=== PATIENT | female | born 2005 | race Two or more races ===

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

== ENCOUNTER 2024-01-10 10:47 | Outpatient (CLI) | payer BC, SELFPAY ==
[2024-01-10 11:07] LABS: Basophils Absolute Auto 0.1 K/mm3 (0.0-0.1); Basophils Percent Auto 0.7 % (0.2-1.2); Eosinophils Percent Auto 0.6 % (0-4.4); Hematocrit 40.2 % (37.0-47.0); Immature Granulocyte Absolute 0.02 K/mm3 (0.00-0.031); Immature Granulocyte Percent A 0.3 % (0-0.5); Lymphocytes Percent Auto 21.6 % (18.3-44.2); Mean Corpuscular HGB Conc 32.3 g/dl (32-36); Mean Corpuscular Volume 89.5 fl (80-100); Mean Platelet Volume 9.7 fl (7.4-10.4); Monocytes Absolute Auto 0.4 K/mm3 (0.1-0.6); Monocytes Percent Auto 5.9 % (2.6-8.5); Neutrophils Absolute Auto 4.9 K/mm3 (1.3-6.7); Neutrophils Percent Auto 70.9 % (45.5-73.1); Platelet Count Result 363 k/mm3 (150-375); Red Blood Count 4.49 M/mm3 (4.2-5.4); Red Cell Distribution Width 12.6 % (11.5-14.5)
== END 2024-01-10 10:48 | disposition home or self-care (01) ==
LOC: ANHLAB 10:48
PROVIDERS: PCP Family Medicine; Visit Provider Family Medicine
DX: D72.829 Elevated white blood cell count, unspecified (principal)
CPT/HCPCS: 36415; 85025

== ENCOUNTER 2024-01-13 12:44 | Outpatient (CLI) | payer BC, SELFPAY ==
--- NOTE | ~2024-01-13 | US_ITS ---
EXAMINATION TYPE: US breast LT complete COMPARISON: NONE REASON FOR STUDY: N63.20 - Unspecified lump in the left breast, unspecified... TECHNIQUE: Targeted sonographic evaluation of the left breast was performed. INTERPRETATION: At the 8:00 position left breast, 3 cm from the nipple, there is a 1.3 x 0.8 x 1.6 in near parallel c ircumscribed hypoechoic solid mass. There is posterior through transmission. Mass is mildly heterogen eous. IMPRESSION: 1.3 x 0.8 x 1.6 cm left breast mass, as detailed above, probably benign. 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 Six-month follow-up ultrasound recommended to reassess. Biopsy could be pursued for mor e definitive diagnosis, as indicated. BI-RADS CATEGORY: BI-RADS 3: Probably benign Reviewed, dictated and finalized at location M. CTOR OF BILLING IMPRESSION: 1.3 x 0.8 x 1.6 cm left breast mass, as detailed above, probably benign. This m ost likely represents fibroadenoma. Six-month follow-up ultrasound recommended to reassess. Biopsy could be pursued for more definitive diagnosis, as indicate d. BI-RADS CATEGORY: BI-RADS 3: Probably benign
== END 2024-01-13 12:45 | disposition home or self-care (01) ==
LOC: MICIMG 12:44
PROVIDERS: PCP Family Medicine; Visit Provider Family Medicine
DX: N63.24 Unspecified lump in the left breast, lower inner quadrant (principal)
CPT/HCPCS: 76641

== ENCOUNTER 2024-01-25 14:33 | Outpatient (CLI) | payer BC, SELFPAY ==
[2024-01-28 13:33] LABS: NIL 0.01 IU/mL; Quantiferon TB Plus, 1T NEGATIVE (NEGATIVE); TB1-NIL 0.01 IU/mL; TB2-NIL 0.01 IU/mL
== END 2024-01-25 14:34 | disposition home or self-care (01) ==
PROVIDERS: PCP Family Medicine; Visit Provider Family Medicine
DX: Z11.1 Encounter for screening for respiratory tuberculosis (principal)
CPT/HCPCS: 36415; 86480

== ENCOUNTER 2024-02-07 07:38 | Outpatient (CLI) | payer BC, SELFPAY ==
--- NOTE | ~2024-02-07 | MMUS_ITS ---
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 Ultrasound-guided core biopsy is requested to evaluate for malignancy. BREAST PARENCHYMAL COMPOSITION: Dense: The breasts are extremely dense, which lowers the sensitivity of mammography. TECHNIQUE AND FINDINGS: The risks and potential benefits of the procedure were discussed with the patient, and written inform ed consent was obtained. After sterile preparation of the left breast, 1% lidocaine was utilized for local anesthesia. 1% lidocaine with epinephrine was used for deep anesthesia. A 10G vacuum-assisted biopsy gun needle was advanced through to the outer edge of the region of inter est from a medial approach utilizing sonographic guidance. A total of 4 tissue core samples were obt ained through the lesion. An Inrad tissue marker clip was then placed at the biopsy site. Hemostasis was achieved. The patient tolerated procedure well and there was no evidence of immediate complication. The patien t was given verbal instructions partly is from the department. Left breast mammograms to document ti ssue marker clip placement. The tissue samples were submitted to surgical pathology for histologic an alysis. IMPRESSION: 1. Successful ultrasound-guided vacuum-assisted biopsy of left breast mass with post procedure mammo gram for marker placement. Please refer to pathology report for histologic analysis. Reviewed, dictated and finalized at location B. ER MARBLE FINISHER IMPRESSION: 1. Successful ultrasound-guided vacuum-assisted biopsy of left breast mass wit h post procedure mammogram for marker placement. Please refer to pathology repo rt for histologic analysis.
== END 2024-02-07 07:39 | disposition home or self-care (01) ==
PROVIDERS: PCP Family Medicine; Visit Provider Family Medicine
DX: N63.20 Unspecified lump in the left breast, unspecified quadrant (principal)
CPT/HCPCS: 19083; 77065; 88305; A4648

== ENCOUNTER 2024-09-25 21:59 | Emergency (ER) | payer BC, SELFPAY ==
--- OUTSIDE RECORDS SUMMARY | 2024-09-25 22:01 | XMS_ITS | Encounter Summary ---
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
--- OUTSIDE RECORDS SUMMARY | 2024-09-25 22:01 | XMS_ITS | Continuity of Care Document ---
Author Organization [facility] Address [address] [place] [address] Phone Care Team Providers Care Obedience Trainer Name Role Phone Bailey Torres Unavailable Unavailable Procedures Procedure Date Eye Exam, New Patient Refraction Advance Directives Directive Yes / No Effective Date File Name No Information Encounters Encounter Description Practice Location Reason(s) For Visit Diagnoses Date Provider Providers Copied on Encounter [facility], [address], [place], [place], [id number], [place] tel:[phone] [facility] No Information [phone] Melissa Avalos. [address] , [address], [place], [address], [place]. tel:[phone] Family History Family Member Type Diagnosis Age At Onset No Information Payers Payer name Insurance type Covered green party ID Authoriza tion(s) No Information Social [...]
--- OUTSIDE RECORDS SUMMARY | 2024-09-25 22:01 | XMS_ITS | Clinical Summary ---
Author Organization [facility] Address [address] [place] [address] Care Team Providers Care Manager Alliance Name Role Phone Zachary Purcell MD Primary Care Provider [phone] Source Comments [facility]non-owned Affiliates and Associated Physician Practices is amultiple site organization consisting of ambulatory clinics and hospital sitesin [place], [place], [place] and [place]. This disclosure is being madepursuant to the Care Everywhere program and may not contain all information available regarding this patient. Last updated 17.[facility] Allergies No known active allergies Medications * Be aware that medications may not be up to date on this document. Alwaysverify current medications with the patient. hydroxychloroqui ne (PLAQUENIL) 200 MG tablet Take 100 mg by mouth once daily. Active loratadine (CLARITIN) 5 MG/5ML syrup Take 5 mg by mouth once daily. Active acetaminophen (TYLENOL) 80 MG/0.8ML solution Take 150 mg by mouth every 4 hours as needed. Active lansoprazole, disintegrating, (PREVACID SOLUTAB) 15 MG tablet Take 1 Tab by mouth daily before breakfast. 30 Tab 2 08/13/2011 Active Social History Tobacco Use Types Packs/Day Years Used Date Smoking Tobacco: Never Assessed Comments Unknown Sex and Gender Information Value Date Recorded Sex Assigned at Not on file Legal Sex Female 5:32 AM SENIOR APPLICATIONS ARCHITECT Gender Identity Not on file Sexual Orientation Not on file Last Filed Vital Signs Vital Sign Reading Time Taken Comments Blood Pressure 100/70 09/06/2012 3:21 PM CDT Pulse 84 09/06/2012 3:21 PM CDT Temperature 36.8 C (98.3 F) 09/06/2012 3:21 PM CDT Respiratory Rate 24 01/18/2011 6:18 PM SENIOR APPLICATIONS ARCHITECT Oxygen Saturation - - Inhaled Oxygen Concentration - - Weight 25.4 kg (56 lb) 09/06/2012 3:21 PM CDT Height 125.7 cm (4' 1.5) 09/06/2012 3:21 PM CDT Body Mass Index 16.07 09/06/2012 3:21 PM CDT Body Mass Index Percentile 56.94% 09/06/2012 3:2 1 PM CDT Growth Chart: [facility] (Girls, 2- 20 Years) Plan of Treatment Health Maintenance Due Date Last Done Comments HIV SCREENING 11/05/2019 HPV VACCINE (1 - 3-dose series) 11/05/2019 CHLAMYDIA/GONORRHEA SCREENING 2020 MENINGOCOCCAL (Group B) VACC INE SHARED DECISION-MAKING (1 of 2 - Standard) 2020 HEPATITIS C SCREENING 10/31/2022 COVID-19 VACCINE (1 - 2023-2 5 season) 2023 DTAP/TDAP/TD VACCINES (1 - Tdap) 11/05/2023 HEPATITIS B VACCINE (1 of 3 - 19+ 3-dose series) 11/05/2023 DEPRESSION SCREENING 03/01/2024 INFLUENZA VACCINE (#1) 2024 ZOSTER VACCINE (1 of 2) 2054 HIB VACCINE Aged Out No longer eligi ble based on patient's age to complete this topic MENINGOCOCCAL GROUPS A/C/Y/W VACCINE Aged Out No longer eligible b ased on patient's age to complete this topic PNEUMOCOCCAL VACCINE Aged Out No long er eligible based on patient's age to complete this topic Insurance [facility] SELF PAY NO INSURANCE Member Subscriber Plan / Payer (Ef fective for All Dates) Name:[place]onna [place] Member ID:Not on file Relation to Subscriber:Not on file Name:SHONNA [place] Subscriber ID:Not on file (Home) Address: [address] [place] [address] Payer ID:Not on file Group ID:Not on file Type:Self Pay Address: [place], [place] ANTHEM ANTHEM Care Teams Manager Alliance Relationship Specialty Start Date End Date Zachary Purcell MD [address] [place] [address] PCP - General Pediatrics 09/25/22
[2024-09-25 22:02] VITALS: BP 125/82; PULSE 62; RESP 16; TEMP 36.8; O2SAT 100
--- OUTSIDE RECORDS SUMMARY | 2024-09-25 22:02 | XMS_ITS | Data Portability ---
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 Plan of Treatment Reminders Order Date Submit Date Provider Last Modified By Organization Details Last Modified Time Details Appointments IUD INSERTION 2024 02:00P M JUDY WONG NP Not available Not available Not available MED CHECK 2024 11:30A M JUDY WONG NP Not available Not available Not available Lab test, urine 2024 025 [email or web address], [place], [address], 09/25/2024 15:25:24 Referral None recorded. Procedures None recorded. Surgeries None recorded. Imaging None recorded. Medication Orders Kyleena 17.5 mcg/24 hr (up to 5 years) 19.5 mg intrauter ine device [email or web address] [id number], [address] [place], [place], [phone], 09/25/2024 15:31:06 Twirla 120 mcg-30 mcg/24 hr transderm al patch [email or web address] [id number], [address] [place], [place], [phone], 06/13/2024 12:19:19 Patient TargetsNo targets recorded. Patient InstructionsNo instructions recorded. Reason for Referral None Reported. Results Created Date Observation Date Name Description Value Unit Range Abnormal Flag Note LastModifiedBy Organization Detail LastModifiedTime 09/26/1909/25/2024 pregn hayder test, urine HCG negati ve Not Available [place] [address], [place], [address], 09/25/2024 15:10:07 Result Notes None recorded. Procedures Surgical History Date Name Laterality Status Provider Name and Address Organization Details Recorded Time IUD Insertion completed JUDY WONG NP [address], [place], [address], [facility] 09/25/2024 15:23:01 Imaging Results None recorded. Procedure Notes None recorded. Medical Equipment None Reported. Allergies No known drug allergies Medications Name Sig Start Date Stop Date Status Note LastModified by Organization Details LastModified Time cyclobenzap rine 10 mg tablet TAKE 1 TABLET BY MOUTH THREE TIMES DAILY NEEDED FOR MUSCLE SPASM 05/16 completed Not Available Not Available Not Available amoxicillin 500 mg capsule 09/22 completed Not Available Not Available Not Available Xanax 0.5 mg tablet Take 1 tablet 1 hour prior to procedure 2024 active Not Available Not Available Not Avai lable ibuprofen 800 mg tablet Take 1 tablet 1 hour prior to procedure 2024 active Not Available Not Available Not Avai lable hydrocodone 5 mg-acetamin ophen 325 mg tablet TAKE 1 TO 2 TABLETS BY MOUTH EVERY 4 TO 6 HOURS NEEDED FOR PAIN . MAX 8 TABLETS DAILY 03/08 completed Not Available Not Available Not Available prednisone 20 mg tablet TAKE 2 TABLETS BY MOUTH DAILY FOR 5 DAYS 05/16 completed Not Available Not Available Not Available fluoxetine 10 mg tablet TAKE 1 TABLET BY MOUTH DAILY active Not Available Not Available No t Available ondansetron 8 mg disintegrat ing tablet Take 1 tablet 1 hour prior to procedure 2024 active Not Available Not Available Not Avai lable oxycodone-a cetaminophe n 5 mg-325 mg tablet Take 1 tablet 1 hour prior to procedure 2024 active Not Available Not Available Not Avai lable amoxicillin 875 mg tablet TAKE 1 TABLET BY MOUTH EVERY 12 HOURS 09/22 completed Not Available Not Available Not Available sertraline 25 mg tablet TAKE 1 TABLET BY MOUTH DAILY 08/09 completed Not Available Not Available Not Available ibuprofen 600 mg tablet 03/08 completed Not Available Not Available Not Available hydroxyzine HCl 10 mg tablet TAKE 1 TABLET BY MOUTH THREE TIMES DAILY NEEDED FOR ANXIETY active Not Available Not Available No t Available ondansetron 4 mg disintegrat ing tablet DISSOLVE 1 TABLET ON THE TONGUE EVERY 8 HOURS NEEDED FOR NAUSEA OR VOMITING 03/08 completed Not Available Not Available Not Available oxycodone 5 mg tablet 03/08 completed Not Available Not Available Not Available chlorhexidi ne gluconate 0.12 % mouthwash SWISH AND SPIT 15 ML BY MOUTH TWICE DAILY AFTER TOOTHBRUS ANGELES. 09/22 completed Not Available Not Available Not Available Lo Loestrin Fe 1 mg-10 mcg (24)/10 mcg (2) tablet TAKE 1 TABLET BY MOUTH EVERY DAY 06/13 completed Not Available Not Available Not Available Blisovi Fe 1/20 (28) 1 mg-20 mcg (21)/75 mg (7) tablet TAKE 1 TABLET BY MOUTH EVERY DAY 03/08 completed Not Available Not Available Not Available Kyleena 17.5 mcg/24 hr (up to 5 years) 19.5 mg intrauterin e device Take 1 device by intrauter ine route. 2024 active Not Available Not Available Not Tiara lable Twirla 120 mcg-30 mcg/24 hr transdermal patch Apply 1 patch every week by transderm al route for 21 days. 06/13 completed Not Available Not Available Not Available Vitals Date Recorded Body height Body mass index (BMI) [Percentile] Per age and sex Body mass index (BMI) Body weight Systolic And Diastolic Provider Name and Address Organization Details Last Updated DateTime 03/08/2024 170.18 cm 46 % 21.3 kg/m2 67718.8 4 g 108/74 mm[Hg] Areli Zimmer [facility] 09:50:25 Date Recorded Body height Body mass index (BMI) [Percentile] Per age and sex Body mass index (BMI) Body weight Systolic And Diastolic Provider Name and Address Organization Details Last Updated DateTime 06/13/2024 170.18 cm 42 % 21 kg/m2 40102.6 6 g 107/68 mm[Hg] [facility] 5 12:18:24 Date Recorded Body height Body mass index (BMI) Body mass index (BMI) [Percentile] Per age and sex Body weight Systolic And Diastolic Provider Name and Address Organization Details Last Updated DateTime 08/09/2024 170.18 cm 20.8 kg/m2 39 % 00008.0 7 g 109/68 mm[Hg] [facility] 5 11:36:15 Date Recorded Body height Body mass index (BMI) Body mass index (BMI) [Percentile] Per age and sex Body weight Systolic And Diastolic Provider Name and Address Organization Details Last Updated DateTime 09/14/2024 170.18 cm 20.9 kg/m2 40 % 64521.2 2 g 116/70 mm[Hg] [facility] 5 14:07:52 Date Recorded Body height Body mass index (BMI) Body mass index (BMI) [Percentile] Per age and sex Body weight Systolic And Diastolic Provider Name and Address Organization Details Last Updated DateTime 09/25/2024 170.18 cm 20.9 kg/m2 40 % 11954.5 g 128/73 mm[Hg] [facility] 5 15:01:42 Social History Question Answer Notes LastModified by Organizat ion Details LastModified Time Tobacco Smoking Status Never Smoker [facility] 02/25/2022 17:00:32 Are You Blind Or Do You Have Difficulty Seeing? No Information n ot available 02/25/2022 What Is Your Level Of Caffeine Consumption? Occasional [email or web address] Information not available 05/17/2023 How Much Tobacco Do You Chew? None [email or web address] Information not available 05/17/2023 In The 14 Days Before Symptom Onset, Have You Had Close Contact With A Laboratory-confirm ed COVID-19 While That Case Was Ill? No [email or web address] Information n ot available 05/17/2023 In The 14 Days Before Symptom Onset, Have You Had Close Contact With A Person Who Is Under Investigation For COVID-19 While That Person Was Ill? No Information not available 05/17/2023 Have You Been To An Area Known To Be High Risk For COVID-19? No [email or web address] Information not available 05/17/2023 Are You Deaf Or Do You Have Serious Difficulty Hearing? No Information not available 02/25/2022 What Type Of Diet Are You Following? REGULAR Information n ot available 02/25/2022 What Is The Highest Grade Or Level Of School You Have Completed Or The Highest Degree You Have Received? [id number] [email or web address] Information not available 05/17/2023 How Many Days Of Moderate To Strenuous Exercise, Like A Brisk Walk, Did You Do In The Last 7 Days? 5 Information not available 02/25/2022 Are There Any Guns Present In Your Home? No [email or web address] Information not available 05/17/2023 Do You Use Your Seat Belt Or Car Seat Routinely? Yes [email or web address] Information not available 05/17/2023 Do You Have Smoke And Carbon Monoxide Detectors In Your Home? Yes [email or web address] Information not available 05/17/2023 How Much Tobacco Do You Smoke? No Information not available 05/17/2023 Do You Use Sunscreen Routinely? No Information not available 05/17/2023 Have You Used IV Drugs? No Information not available 05/17/2023 Do You Have Difficulty Walking Or Climbing Stairs? No Information not available 02/25/2022 Sex: Unknown Functional Status Question Answer Note LastModified by Organizat ion Details LastModified Time Do you use any illicit or recreational drugs? No [email or web address] Information not available 05/17/2023 What is your level of alcohol consumption? None Information not available 02/25/2022 Are you able to walk? [email or web address] Information not available 02/25/2022 Are you able to care for yourself independently? Yes Information not available 02/25/2022 Do you have difficulty dressing, bathing, grooming, or toileting? No Information not available 02/25/2022 What is your exercise level? Heavy Information not available 02/25/2022 Mental Status Question Answer Note LastModified by Organization D etails LastModified Time Do you feel stressed (tense, restless, nervous, or anxious, or unable to sleep at night)? [id number] [email or web address] Information not available 05/17/2023 Family History Relationship Description Onset Age of this Age Resolved Age Notes LastModified by Organization Details LastModified Time Maternal Grandmother Malignant tumor of breast Not available 2021 16:57:33 Maternal Grandmother Uterine prolapse [email or web address] Not available 2024 13:56:52 Maternal Grandmother Disorder of thyroid gland Not available 2021 16:59:51 Maternal Grandfather Diabetes mellitus Not available 2021 16:57:40 Maternal Grandfather Hypertensive disorder Not available 2021 16:57:49 Maternal Aunt Malignant neoplasm of lung Not available 2021 16:57:58 Mother Disorder of thyroid gland Not available 2021 16:59:51 Mother Endometriosi s (clinical) [email or web address] Not available 14:12:45 Maternal Uncle Disorder of thyroid gland Not available 2021 16:59:51 Medical History Condition Response Allergies (Food, seasonal, environmental ) N Other N Breast Cancer N Drug/Latex Allergies/Reactions N Blood Transfusion N Lung Disease N Dermatologic Disorders N Defects or Inherited Disease N Breast Problem N Gestational Diabetes N Hematologic disorders N Anesthesia Complications N History of STI N Deep Vein Thrombosis N Polycystic ovary syndrome N Anxiety Disorder N Autoimmune disease N Arthritis N Polyps N Infertility N History of abnormal pap N Acid Reflux (GERD) N Cancer N Varicosities N Stroke N Neurologic/Epilepsy N Endometriosis N High Cholesterol N Fibromyalgia N Headaches N Kidney Disease N Heart Problems N Kidney or Bladder Problems N Thyroid Problems N GI Problems N Eating Disorder N Anemia N Art (IVF or FET) N Psychiatric Illness N Ovarian Cancer N Diabetes N Pulmonary (TB, Asthma) N Hepatitis/Liver Disease N No Past Medical History N Eczema N Urinary Tract Infection N Abuse/Domestic Violence N Asthma N Trauma/Violence N Depression/ depression N Heart Disease N Pre-Eclampsia N Hypertension N Osteoporosis N Thrombophilias N Gynecological History Statement/Question Response Flow Heavy Date of Last Mammogram Date of LMP 08/28/2024 Was last menstrual period normal Y STIs/STDs N HPV Vaccine Y Duration of Flow (days) 6 Current Control Method IUD Are cycles usually normal N Frequency of Cycle (Q days) 29 Sexually Active? Y Menses Monthly Y Date of DEXA bone scan Age of first menstrual cycle 11 Date of Last Pap Smear Sexual Problems? N LMP Definite Obstetrics History GPAL:G 0 P 0 0 0 0 Type Value Living 0 Total 0 Past Encounters Encounter ID Performer Location Encounter Start Date Encounter Closed Date Diagnosis/Indication Diagnosis SNOMED-CT Code Diagnosis ICD10 Code Diagnosis Note [id number] Kaylyn Vaughan [facility] [address] [address] 02/25/2022 16:37:13 02/26/2022 16:03:52 Pain in pelvis 63058934 R10.2 Will further evaluate this issue.Rele ase signed to get additional imaging report of CT.TAUS ONLYAware to come with full bladder.Wi ll reach out with results. Patient is to contact office or go to nearest ED/Urgent care if fever >/= 100.1, pain, excessive bleeding, unusual drainage or swelling in area of concern; or experienci ng worsening sx's or new onset of concerning sx's. Understand ing verbalized . All questions answered to patient satisfacti on. Time spent in visit is a total of 30 mins with at least 50% of visit consisting of counseling and review of plan of care. [id number] Nima Simeon MD [place] [address] [address] 03/03/2022 16:29:03 03/03/2022 17:11:40 Pain in pelvis 21341412 R10.2 [id number] Nima Simeon MD [place] [address] [address] 05/17/2023 14:19:09 05/17/2023 15:38:54 Pain in pelvis 54428984 R10.2 17-year-ol d female who presents for episode of dysmenorrh ea. She is some cramping intense pain at time of her menses. That pain persists now. She continues to bleed. She has never had sex. This is her 1st episode of pain. We talked about menstrual cycle, pain, hormonal contracept ion. We spent 20 minutes face-to-fa ce. We agreed to get an ultrasound . We will observe pain. A single episode may not be a persistent problem. [id number] Nima Simeon MD [place] [address],[place] [address] 05/27/2023 14:01:04 05/27/2023 15:16:57 Pain in pelvis 17645968 R10.2 17-year-ol d female who presents for episode of dysmenorrh ea. She is some cramping intense pain at time of her menses. That pain persists now. She continues to bleed. She has never had sex. This is her 1st episode of pain. We talked about menstrual cycle, pain, hormonal contracept ion. We spent 20 minutes face-to-fa ce. We agreed to get an ultrasound . We will observe pain. A single episode may not be a persistent problem. [id number] Nima Simeon MD [place] [address],[place] [address] 05/31/2023 10:12:57 05/31/2023 13:11:07 Dysmenorrhea 070734243 N94.6 17-year-ol d female who presents by phone to discuss ultrasound results. Her ultrasound is normal. She had a isolated painful menses. We are going to observe and see if she is more painful menses. She was instructed to return to discuss treatment strategies if they persisted. [id number] Nima Simeon MD [place] [address],[place] [address] 06/22/2023 12:06:07 06/22/2023 13:13:32 Dysmenorrhea 599651974 N94.6 17-year-ol d female with dysmenorrh ea. We were observing some painful periods. They have persisted. We agreed to a trial of orall contracept mckayla pills. We talked about oral contracept mckayla pills. I gave her background and monae vitale along with zechariah nolasco about the pill. She was instructed on how to start. Spent 20 minutes face-to-fa ce . More than 50% was counseling . Nima Simeon MD [place] [address],[place] [address] 09/23/2023 12:22:12 09/25/2023 10:02:28 Dysmenorrhea 832736881 N94.6 17-year-ol d female with dysmenorrh ea. She presents for follow-up after prescribin g low-dose contracept mckayla pills. She noticed improvemen t of her periods. This lower flow and less pain. She is having trouble with side effects of the combined oral contracept mckayla pills. We talked about options and we discussed a lower dose pill. We agreed to a lower dose pills. She was given zechariah cruz. We talked about the risks, benefits, and alternativ es to this treatment. The medication s were prescribed . Spent over 30 minutes on her care in total [id number] Nima Simeon MD [place] [address],[place] [address] 03/08/2024 09:43:48 03/08/2024 10:17:42 Contraception care management 335767784 Z30.9 Discussed all control options in great detail. Pt would like to start Twirla patch. She is aware of the risks and benefits. She does not have any medical condition that is contraindi cated with the use of estrogen containing control. Pt may start patch the first day of her next period and then replace weekly x 2 (total of 3 patches over 3 weeks) and week 4 no patch. She is aware it is not effective for control the first month. She is also aware that she will need to check placement daily to ensure it has not come off. Patient instructed to apply patch when her skin is clean and dry. Encouraged use of condoms as the Twirla patch does not protect against STD's. Consent was read and signed. Pt verbalized understand ing. Pt to RTO in 3 months for a med check. [id number] Nima Simeon MD [place] [address],[facility] [place] [address] 06/13/2024 12:09:51 06/13/2024 13:40:46 Contraception care management [id number] Z30.9 Effectiven ess, correct use, advantages /disadvant ages, common side effects, serious complicati ons, contra-ind ications/p recautions and return to fertility were reviewed for the following: Combined oral contracept mckayla (pills/pat ch/ring), Progestero ne-only pills, Depo Provera injection, Nexplanon implant, Kyleena IUD, Mirena IUD. Patient interested in hormonal Kyleena IUD or Nexplanon. Patient to call with decision. [id number] Nima Simeon MD [place] [address],[facility] [place] [address] 08/09/2024 11:28:22 08/09/2024 12:06:10 Menorrhagia 254685868 N92.0 Today we discussed multiple options for menorrhagi a including: IUD's, Patch, Ring, Pills, Nexplanon, Lysteda. We discussed if any are contraindi cated with her current health Hx.Discuss ed updating pelvic ultrasound due to persistent menorrhagi a and painful periods - patient declined at this time.Patie nt interested in hormonal Kyleena IUD.Discus sed the risks, benefits, and alternativ es to Kyleena IUD. Discussed insertion and removal process. Discussed bleeding profile. Questions answered. Will schedule insertion with menses. [id number] Nima Simeon MD [place] [address] [address] 09/14/2024 13:56:10 09/14/2024 17:43:18 Secondary dysmenorrhea 51940914 N94.5 Reviewed endometrio sis in general, symptoms attributab le to it, and potential effects on future fertility. Discussed chronic nature of disease, and frequent need for suppressio n until menopause. Reviewed medical therapies (pros/cons , risks/bene fits of each) and surgical approaches to treatment, including conservati ve procedures and definitive surgery. Discussed that endometrio sis cannot be diagnosed with pelvic ultrasound and requires diagnostic laparoscop y to definitely diagnose. Discussed updating pelvic ultrasound to r/o uterine/ov silvano abnormalit ies - patient declined at this time. Patient desires to get Kyleena IUD to help manage period symptoms.D iscussed the risks, benefits, and possible adverse effects of Kyleena IUD. Discussed insertion and removal process. Discussed bleeding profile. Questions answered. Will schedule insertion with menses. [id number] Nima Simeon MD [place] [address] [address] 09/25/2024 14:52:46 09/25/2024 15:32:17 Insertion of intrauterine contraceptive device 07140216 Z30.430 She has been counseled on all of the r/b/a of placement of an intrauteri ne device that include but are not limited to uterine perforatio n, injury to cervix, vagina, bladder, and bowel.Risk s of bleeding due to injury or increased irregular bleeding due to progestin effect of the device. Risks of infection would be increased within the first 21 days of placement with concomitan t cervicitis . She understand s that the device will need to be removed in this instance due to increased risk of Pelvic inflammato ry disease. Patient is aware she is at higher risk for STD and if contracted she could lose her fertility. Pt is aware that if occurs that she should contact office immediatel y to rule out ectopic which could be life threatenin g. IUD will also need to be removed and this could cause miscarriag e. Patient also informed that in the event her strings are absent or embedded at the time of removal she may need to have the IUD surgically removed. She was informed of the above and properly consented. Kyleena IUD placed w/o complicati on. Patient should return to office in 4-6 weeks to check for string placement. Patient to expect irregular bleeding but should be seen in the ED if bleeding increases to soaking a pad an hour for at least 2 hours. She verbalized understand ing. Health Concerns Section Related Observation LastModified by Organization Detai ls LastModified Time None Recorded Concern Status LastModified by Organization Details LastModified Time None Recorded Advance Directives Directive None Recorded Payers Insurance Date Sequence Insurance Name Policy Number Policy Rogers Covered Member ID Rogers Member ID Guarantor Name 09/22/2024 1 [employer] [id number] Erlin Aponte [id number] J[address] Aponte OBMercy Episode No OBEpisode recorded.
--- OUTSIDE RECORDS SUMMARY | 2024-09-25 22:02 | XMS_ITS | Continuity of Care Document ---
Author Organization 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 Plan of Treatment Reminders Order Date Submit Date Provider Last Modified By Organization Details Last Modified Time Details Appointments IUD INSERTION 2024 02:00P M JUDY WONG CHIP FRIER Not available Not available Not available MED CHECK 2024 11:30A M JDUY WONG CHIP FRIER Not available Not available Not available Lab test, urine 2024 025 [email or web address] [place], [address], [place], [address], 09/25/2024 15:25:24 Referral None recorded. Procedures None recorded. Surgeries None recorded. Imaging None recorded. Medication Orders Kyleena 17.5 mcg/24 hr (up to 5 years) 19.5 mg intrauter ine device 2024 025 [email or web address] [id number], [address], [place], [place], [id number], 09/25/2024 15:31:06 Patient TargetsNo targets recorded. Patient InstructionsNo instructions recorded. Reason for Referral None Reported. Results Created Date Observation Date Name Description Value Unit Range Abnormal Flag Note LastModifiedBy Organization Detail LastModifiedTime 09/26/1909/25/2024 pregn hayedr test, urine HCG negati ve Not Available [place] [address], [place], [address], 09/25/2024 15:10:07 Result Notes None recorded. Procedures Surgical History Date Name Laterality Status Provider Name and Address Organization Details Recorded Time IUD Insertion completed JUDY WONG NP [address], [place], [address], [facility] 09/25/2024 15:23:01 Imaging Results None recorded. [...] Available Not Available ibuprofen 600 mg tablet 01/08 /2025 completed Not Available Not Available Not Available [...] Available Not Available Not Available Blisovi Fe /20 (28) 1 mg-20 mcg (21)/75 mg (7) tablet TAKE 1 TABLET BY MOUTH EVERY DAY 03/08 completed Not Available Not Available Not Available Kyleena 17.5 mcg/24 hr (up to 5 years) 19.5 mg intrauterin e device Take 1 device by intrauter ine route. 2024 active Not Available Not Available Not Avai lable Twirla 120 mcg-30 mcg/24 hr transdermal [...] 09/25/2024 170.18 cm 20.9 kg/m2 40 % 09272.5 g 128/73 mm[Hg] Areli Zimmer [facility] 15:01:42 Social History Question Answer Notes LastModified by Organizat ion Details LastModified Time Tobacco Smoking Status Never Smoker Jennifer branham [facility] 02/25/2022 17:00:32 Are You Blind Or Do You Have Difficulty Seeing? No Information n ot available 02/25/2022 What Is Your Level Of Caffeine Consumption? Occasional [email or web address] Information not available 05/17/2023 How Much Tobacco Do You Chew? None [email or web address] Information not available 05/17/2023 In The 14 Days Before Symptom Onset, Have You Had Close Contact With A Laboratory-confirm ed COVID-19 While That Case Was Ill? No [email or web address] Information n ot available 05/17/2023 In The 14 Days Before Symptom Onset, Have You Had Close Contact With A Person Who Is Under Investigation For COVID-19 While That Person Was Ill? No [email or web address] Information not available 05/17/2023 Have You Been To An Area Known To Be High Risk For COVID-19? No Information not available 05/17/2023 Are You Deaf Or Do You Have Serious Difficulty Hearing? No Information not available 02/25/2022 What Type Of Diet Are You Following? REGULAR Information n ot available 02/25/2022 What Is The Highest Grade Or Level Of School You Have Completed Or The Highest Degree You Have Received? [id number] Information not available 05/17/2023 How Many Days Of Moderate To Strenuous Exercise, Like A Brisk Walk, Did You Do In The Last 7 Days? 5 Information not available 02/25/2022 Are There Any Guns Present In Your Home? No [email or web address] Information not available 05/17/2023 Do You Use Your Seat Belt Or Car Seat Routinely? Yes [email or web address] Information not available 05/17/2023 Do You Have Smoke And Carbon Monoxide Detectors In Your Home? Yes Information not available 05/17/2023 How Much Tobacco Do You Smoke? No [email or web address] Information not available 05/17/2023 Do You Use Sunscreen Routinely? No [email or web address] Information not available 05/17/2023 Have You Used IV Drugs? No [email or web address] Information not available 05/17/2023 Do You Have Difficulty Walking Or Climbing Stairs? No Information not available 02/25/2022 Sex: Unknown Functional Status Question Answer Note LastModified by Organizat ion Details LastModified Time Do you use any illicit or recreational drugs? No [email or web address] Information not available 05/17/2023 What is your [...] anxious, or unable to sleep at night)? [id number] [email or web address] Information not available 05/17/2023 Family History Relationship Description Onset Age of this Age Resolved Age Notes LastModified by Organization Details LastModified Time Maternal Grandmother Malignant tumor of breast Not available 2021 16:57:33 Maternal Grandmother Uterine prolapse Not available 2024 13:56:52 Maternal Grandmother Disorder [...] (Food, seasonal, environmental ) N Other N Blood Transfusion N Drug/Latex Allergies/Reactions N Breast Cancer N Dermatologic Disorders N Lung Disease N Defects or Inherited Disease N Breast Problem N Gestational Diabetes N Hematologic disorders N Anesthesia Complications N History of STI N Deep Vein Thrombosis N Polycystic ovary syndrome N Anxiety Disorder N Autoimmune disease N Arthritis N Infertility N Polyps N Acid Reflux (GERD) N History of abnormal pap N Cancer N Stroke N Varicosities N Neurologic/Epilepsy N Endometriosis N High Cholesterol N Headaches N Fibromyalgia N Kidney Disease N Heart Problems N [...] SNOMED-CT Code Diagnosis ICD10 Code Diagnosis Note [id number] Nima Simeon MD [place] [address] [address] 09/14/2024 13:56:10 09/14/2024 17:43:18 Secondary dysmenorrhea [id number] N94.5 Reviewed endometrio sis in general, symptoms [...] Questions answered. Will schedule insertion with menses. [id number] Nima Simeon MD [place] [address] [address] 09/25/2024 14:52:46 09/25/2024 15:32:17 Insertion of intrauterine contraceptive device [id number] Z30.430 She has been counseled on all [...] by Organization Details LastModified Time None Recorded Payers Encounter Date Sequence Insurance Name Policy Number Policy Rogers Covered Member ID Rogers Member ID Guarantor Name 09/25/2024 1 [employer] [id number] Erlin Aponte [id number] Jd Aponte OBGyn Episode No OBEpisode recorded.
--- OUTSIDE RECORDS SUMMARY | 2024-09-25 22:02 | XMS_ITS | Clinical Summary ---
Author Organization [facility] Address [address] [place] [address] Care Team Providers Care Career Placement Specialist Name Role Phone Unavailable Primary Care Provider Unavailabl e Social History Tobacco Use Types Packs/Day Years Used Date Smoking Tobacco: Never Assessed Comments Unknown Sex and Gender Information Value Date Recorded Sex Assigned at Not on file Legal Sex Female 9:01 PM PST Gender Identity Not on file Sexual Orientation Not on file Plan of Treatment Not on file
[2024-09-25 22:45] VITALS: BP 126/82; PULSE 60; RESP 17; O2SAT 100
[2024-09-25 22:49] VITALS: BP 126/82; PULSE 60; RESP 14; O2SAT 100
[2024-09-25] MEDS: KETOROLAC 30 MG/ML VIAL (*BKC) IM (23:05)
[2024-09-25 23:11] VITALS: BP 131/81; PULSE 68; RESP 14; TEMP 36.6; O2SAT 98
--- NOTE | 2024-09-26 00:42 | ED.FEMALEGU ---
HPI - Female Genitourinary General Chief complaint: Vaginal Bleeding Stated complaint: pain after IUD insertion Time Seen by Provider: 09/25/24 22:34 History of Present Illness HPI Narrative: Patient had her IUD inserted today, has never had this before, she is having intermittent cramping pain, in her lower abdomen and back. Little bit of bleeding but she is on the last day of her period. Related Data Allergies Allergy/AdvReac Type Severity Reaction Status Date / Time No Known Allergies Allergy Verified 09/25/24 22:00 Review of Systems Review of Systems: All systems reviewed & are unremarkable except as noted in HPI and below [facility] Past Medical History Medical History Strain of left Achilles tendon Left ankle pain Healthy female adolescent Surgical History Surgical History No history of previous surgery Family History Family History Mother Anxiety Social History Social History Smoking status: Never smoker Alcohol intake: never Substance use: never Do You Feel Safe in your Home?: Yes Lack of Transportation: No Lack of Food: Never True Current Housing: I Have Housing Concerned About Future Housing: No Difficulty Paying Gas/Electric Bills: No Difficulty Paying for Meds: No Currently Unemployed: No Education: High School Diploma/GED Difficulty w/ Childcare or Family Care: No Occupation/Education: student Exam Narrative: EXAMINATION OF ORGAN SYSTEMS/BODY AREAS: Constitutional: Vital signs per nursing GENERAL:[No acute distress, non-toxic appearing.] HEAD: Normal with no signs of head trauma. EYES: EOMI, conjunctiva normal ENT: Hearing grossly intact LUNGS: Nonlabored breathing. HEART: [Regular rate and rhythm] ABD: [Soft], [nontender to palpation] : with nurse cigarette packing machine operator in room. Cervix visualized, small/normal amount of blood in vault, IUD strings coming out of cervix EXT: Normal range of motion SKIN: [No rashes or lesions.] NEURO: [Alert and oriented x 3. No gross focal sensory or strength deficits.] PSYCH: Normal affect Course Vital Signs Vital signs: Vital Signs Temperature 98.3 F 09/25/24 22:02 Pulse Rate 62 09/25/24 22:02 Respiratory Rate 16 09/25/24 22:02 Blood Pressure 125/82 09/25/24 22:02 Pulse Oximetry 100 09/25/24 22:02 Temperature 97.9 F 09/25/24 23:11 Pulse Rate 68 09/25/24 23:11 Respiratory Rate 14 09/25/24 23:11 Blood Pressure 131/81 09/25/24 23:11 Pulse Oximetry 98 09/25/24 23:11 Oxygen Delivery Room Air 09/25/24 22:45 MDM - Female Genitourinary MDM Narrative Medical decision making narrative: Patient very well-appearing here, was having abdominal/lower back cramps after IUD insertion today, abdomen soft nontender on exam he drinks appear to be in place coming out of her cervix, given pain medication today, have very low concern for any emergency such as perforated uterus at this time given her benign exam, but she is counseled to follow-up with her OB tomorrow for ultrasound to ensure proper placement. Patient agreeable to this plan withdrawal precautions Discharge Plan Discharge Clinical Impression: Pain due to intrauterine contraceptive device (IUD) Patient Disposition: Home Condition: Stable Additional Instructions: Please call your OB office tomorrow morning to let them know about your symptoms, you may need an ultrasound to ensure proper placement. Continue taking ibuprofen and Tylenol at home and using heat pack, you can always return to the emergency room for any further issues. Patient Language: Polish Prescriptions: No Action hydroxyzine HCl 10 mg tablet 10 mg PO TID PRN (Reason: anxiety) Qty: 90 0RF fluoxetine 10 mg tablet 10 mg PO DAILY Qty: 30 1RF Follow-up/Referrals: Alka Argueta DO [Primary Care Provider] - Stand Alone Forms: Work/School Release IP
== END 2024-09-25 23:13 | disposition home or self-care (01) ==
LOC: ANHED 23:13
PROVIDERS: Emergency Provider Emergency Medicine; PCP Family Medicine
DX: T83.84XA Pain due to genitourinary prosthetic devices, implants and grafts, initial encounter (principal); Y76.1 Therapeutic (nonsurgical) and rehabilitative obstetric and gynecological devices associated with adverse incidents
CPT/HCPCS: 96372; 99283; J1885

== ENCOUNTER 2024-12-05 16:01 | Outpatient (CLI) | payer BC, SELFPAY ==
--- OUTSIDE RECORDS SUMMARY | 2009-07-18 03:15 | XMS_ITS | Continuity of Care Document ---
Author Organization [facility] Address [address] [place] [address] Phone Care Team Providers Care Research Assistant Professor Name Role Phone Bailey Torres Unavailable Unavailable Procedures Procedure Date Eye Exam, New Patient Refraction Advance Directives Directive Yes / No Effective Date File Name No Information Encounters Encounter Description Practice Location Reason(s) For Visit Diagnoses Date Provider Providers Copied on Encounter [facility], [address], [place], [place], [id number], [place] tel:[phone] [facility] No Information [phone] Melissa Avalos. [address] , [address], [place], [address], [place]. tel:[phone] Family History Family Member Type Diagnosis Age At Onset No Information Payers Payer name Insurance type Covered alliance party ID Authoriza tion(s) No Information Social History Type Description Quantity Date Captured Comments Sex Female Smoking Status No Information Chief Complaint And Reason For Visit No Information Reason For Referral Reason For Referral No Information History Of Present Illness Encounter Date Complaint History Of Prese nt Illness No Information Functional Status Date Functional Assessmen t No Information Instructions Date Instruction Additional Infor mation No Information Assessments Type Assessment Date No Information Patient Care Teams Name Effective Dates (start - stop) Status Members No Information
--- OUTSIDE RECORDS SUMMARY | 2024-12-05 16:38 | XMS_ITS | Encounter Summary ---
Author Organization [facility] Address [address] [place] [address] Care Team Providers Care Special Effects Artist Name Role Phone Unavailable Primary Care Provider Unavailabl e Prior Encounters Date Type Department Care Team Description 03/20/2019 Converted CPS Chart Documents [facility] [address] [place] [address] <No scans attached> 03/20/2019 Converted 13x Documents [facility] [address] [place] [address] <No scans attached> Plan of Treatment Not on file Procedures Procedure Name Priority Date/Time Associated Diagnosis Comments OS CONSULT Routine 02/14/2020 2:00 AM 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
--- OUTSIDE RECORDS SUMMARY | 2024-12-05 16:38 | XMS_ITS | Data Portability ---
Author Organization [facility] [place] Address [address] [place] [address] Care Team Providers Care Accreditation Manager Name Role Phone BRADENCOCOANKUSH [place] Primary Care Provider [phone] Assessment No assessment recorded. Plan of Treatment Reminders Order Date Submit Date Provider Last Modified By Organization Details Last Modified Time Details Appointments None recorded. Lab test, urine 2024 025 [email or web address] [address], [address], [place], [address], 15:25:24 Referral None recorded. Procedures None recorded. Surgeries None recorded. Imaging None recorded. Medication Orders Kyleena 17.5 mcg/24 hr (up to 5 years) 19.5 mg intrauterin e device 2024 025 [email or web address] [id number], [address], [place], [id number], 15:31:06 Patient TargetsNo targets recorded. Patient InstructionsNo instructions recorded. Reason for Referral None Reported. Results Created Date Observation Date Name Description Value Unit Range Abnormal Flag Note LastModifiedBy Organization Detail LastModifiedTime 09/26/1909/25/2024 pregn hayder test, urine HCG negati ve Not Available [place] [address], [place], [address], 09/25/2024 15:10:07 Result Notes None recorded. Procedures Surgical History Date Name Laterality Status Provider Name and Address Organization Details Recorded Time IUD Insertion completed JUDY WONG, ARTIS [address], [place], [address], [facility] 09/25/2024 15:23:01 Imaging Results None recorded. [...] Not Available Not Available Not Available ibuprofen 800 mg tablet TAKE 1 TABLET BY MOUTH 1 HOUR BEFORE PROCEDURE active Not Available Not Available No t Available hydrocodone 5 mg-acetamin ophen 325 mg tablet [...] Available ondansetron 8 mg disintegrat ing tablet DISSOLVE 1 TABLET ON THE TONGUE 1 HOUR BEFORE PROCEDURE active Not Available Not Available No t Available oxycodone-a cetaminophe n 5 mg-325 mg tablet TAKE 1 TABLET BY MOUTH 1 HOUR BEFORE PROCEDURE active Not Available Not Available No t Available alprazolam 0.5 mg tablet TAKE 1 TABLET BY MOUTH 1 HOUR BEFORE PROCEDURE active Not Available Not Available No t Available amoxicillin 875 mg tablet TAKE 1 TABLET [...] Not Available Not Available Not Available fluoxetine 20 mg capsule TAKE 1 CAPSULE BY MOUTH DAILY active Not Available Not Available No t Available oxycodone 5 mg tablet 03/08 completed [...] Available Not Available Not Available Blisovi Fe / (28) 1 mg-20 mcg (21)/75 mg (7) [...] 06/13/2024 170.18 cm 42 % 21 kg/m2 26805.6 6 g 107/68 mm[Hg] [facility] 5 12:18:24 Date Recorded Body height Body mass index (BMI) Body mass index (BMI) [Percentile] Per age and sex Body weight Systolic And Diastolic Provider Name and Address Organization Details Last Updated DateTime 08/09/2024 170.18 cm 20.8 kg/m2 39 % 75914.0 7 g 109/68 mm[Hg] [facility] 5 11:36:15 Date Recorded Body height Body mass index (BMI) Body mass index (BMI) [Percentile] Per age and sex Body weight Systolic And Diastolic Provider Name and Address Organization Details Last Updated DateTime 09/14/2024 170.18 cm 20.9 kg/m2 40 % 16838.2 2 g 116/70 mm[Hg] [facility] 5 14:07:52 Date Recorded Body height Body mass index (BMI) Body mass index (BMI) [Percentile] Per age and sex Body weight Systolic And Diastolic Provider Name and Address Organization Details Last Updated DateTime 09/25/2024 170.18 cm 20.9 kg/m2 40 % 05498.5 g 128/73 mm[Hg] [facility] 5 15:01:42 Date Recorded Body height Body mass index (BMI) Body mass index (BMI) [Percentile] Per age and sex Body weight Systolic And Diastolic Provider Name and Address Organization Details Last Updated DateTime 10/19/2024 170.18 cm 20.8 kg/m2 38 % 13897.7 9 g 116/73 mm[Hg] [facility] 5 14:26:45 Social History Question Answer Notes LastModified by Organizat ion Details LastModified Time Tobacco Smoking Status Never Smoker [facility] 02/25/2022 17:00:32 Are You Blind Or Do You Have Difficulty Seeing? No Information n ot available 02/25/2022 What Is Your Level Of Caffeine Consumption? Occasional Information not available 05/17/2023 How Much Tobacco Do You Chew? None [email or web address] Information not available 05/17/2023 In The 14 Days Before Symptom Onset, Have You Had Close Contact With A Laboratory-confirm ed COVID-19 While That Case Was Ill? No [email or web address] Information n ot available 05/17/2023 In The 14 Days Before Symptom Onset, Have You Had Close Contact With A Person Who Is Under Investigation For COVID-19 While That Person Was Ill? No [email or web address] Information not available 05/17/2023 Have You Been To An Area Known To Be High Risk For COVID-19? No [email or web address] Information not available 05/17/2023 Are You Deaf Or Do You Have Serious Difficulty Hearing? No Information not available 02/25/2022 What Type Of Diet Are You Following? REGULAR Information n ot available 02/25/2022 What Is The Highest Grade Or Level Of School You Have Completed Or The Highest Degree You Have Received? CT12049-3 [email or web address] Information not available 05/17/2023 How Many Days Of Moderate To Strenuous Exercise, Like A Brisk Walk, Did You Do In The Last 7 Days? 5 Information not available 02/25/2022 Are There Any Guns Present In Your Home? No [email or web address] Information not available 05/17/2023 Do You Use Your Seat Belt Or Car Seat Routinely? Yes Information not available 05/17/2023 Do You Have Smoke And Carbon Monoxide Detectors In Your Home? Yes Information not available 05/17/2023 How Much Tobacco Do You Smoke? No [email or web address] Information not available 05/17/2023 Do You Use Sunscreen Routinely? No [email or web address] Information not available 05/17/2023 Have You Used IV Drugs? No [email or web address] Information not available 05/17/2023 Do You Have Difficulty Walking Or Climbing Stairs? No Information not available 02/25/2022 Sex: Unknown Functional Status Question Answer Note LastModified by Organizat ion Details LastModified Time Do you use any illicit or recreational drugs? No [email or web address] Information not available 05/17/2023 What is your level of alcohol consumption? None Information not available 02/25/2022 Are you able to walk independently without assistance or assistive devices? [email or web address] Information not available 02/25/2022 Are you [...] anxious, or unable to sleep at night)? [id number] [email or web address] Information not available 05/17/2023 Family History Relationship Description Onset Age of this Age Resolved Age Notes LastModified by Organization Details LastModified Time Maternal Grandmother Malignant neoplasm of breast Not available 2021 16:57:33 Maternal Grandmother Uterine prolapse [email or web address] Not available 2024 13:56:52 Maternal Grandmother Disorder [...] N Drug/Latex Allergies/Reactions N Blood Transfusion N Dermatologic Disorders N Lung Disease N [...] Thrombophilias N Gynecological History Statement/Question Response Flow Moderate Date of Last Mammogram Date of LMP 09/23/2024 Was last menstrual period normal Y STIs/STDs N HPV Vaccine Y Duration of Flow (days) 27 Current Control Method IUD Are cycles usually [...] Diagnosis SNOMED-CT Code Diagnosis ICD10 Code Diagnosis IMO Codes Diagnosis Note [id number] Kaylyn Vaughan [facility] [address] [address] 02/25/2022 16:37:13 02/26/2022 16:03:52 Pain in pelvis 72487550 R10.2 Will further evaluate this issue.Rele ase [...] counseling and review of plan of care. [id number] Nima Simeon MD [place] [address] [address] 03/03/2022 16:29:03 03/03/2022 17:11:40 Pain in pelvis 38580846 R10.2 [id number] Nima Simeon MD [place] [address],[place] [address] 05/17/2023 14:19:09 05/17/2023 15:38:54 Pain in pelvis 33024581 R10.2 17-year-ol d female who presents for [...] episode may not be a persistent problem. [id number] Nima Simeon MD [place] [address],[place] [address] 05/27/2023 14:01:04 05/27/2023 15:16:57 Pain in pelvis 03028332 R10.2 17-year-ol d female who presents for [...] episode may not be a persistent problem. [id number] Nima Simeon MD [place] [address],[place] [address] 05/31/2023 10:12:57 05/31/2023 13:11:07 Dysmenorrhea 611800964 N94.6 17-year-ol d female who presents by phone to discuss ultrasound results. Her ultrasound is normal. She had a isolated painful menses. We are going to observe and see if she is more painful menses. She was instructed to return to discuss treatment strategies if they persisted. [id number] Nima Simeon MD [place] [address],[place] [address] 06/22/2023 12:06:07 06/22/2023 13:13:32 Dysmenorrhea 541359649 N94.6 17-year-ol d female with dysmenorrh ea. We were observing some painful periods. They have persisted. We agreed to a trial of orall contracept mckayla pills. We talked about oral contracept mckayla pills. I gave her background and instructio ns along with precaution s about the pill. She was instructed on how to start. Spent 20 minutes face-to-fa ce . More than 50% was counseling . Nima Simeon MD [place] [address] [address] 09/23/2023 12:22:12 09/25/2023 10:02:28 Dysmenorrhea 710012204 N94.6 17-year-ol d female with dysmenorrh ea. [...] a lower dose pills. She was given instructio ns, precaution s. We talked about the risks, benefits, and alternativ es to this treatment. The medication s were prescribed . Spent over 30 minutes on her care in total [id number] Nima Simeon MD [place] [address],[place] [address] 03/08/2024 09:43:48 03/08/2024 10:17:42 Contraception care management 822414610 Z30.9 Discussed all control options in great [...] in 3 months for a med check. [id number] Nima Simeon MD [place] [address],[facility] [place] [address] 06/13/2024 12:09:51 06/13/2024 13:40:46 Contraception care management 266934796 Z30.9 Effectiven ess, correct use, advantages /disadvant ages, common side effects, serious complicati ons, contra-ind ications/p recautions and return to fertility were reviewed for the following: Combined oral contracept mckayla (pills/pat ch/ring), Progestero ne-only pills, Depo Provera injection, Nexplanon implant, Kyleena IUD, Mirena IUD. Patient interested in hormonal Kyleena IUD or Nexplanon. Patient to call with decision. [id number] Nima Simeon MD [place] [address] [address] 08/09/2024 11:28:22 08/09/2024 12:06:10 Menorrhagia 074663936 N92.0 [id number] Today we discussed multiple options for menorrhagi [...] Questions answered. Will schedule insertion with menses. [id number] Nima Simeon MD [place] [address] [address] 09/14/2024 13:56:10 09/14/2024 17:43:18 Secondary dysmenorrhea 43880170 N94.5 [id number] Reviewed endometrio sis in general, symptoms attributab [...] Questions answered. Will schedule insertion with menses. [id number] Nima Simeon MD [place] [address] [address] 09/25/2024 14:52:46 09/25/2024 15:32:17 Insertion of intrauterine contraceptive device 94549423 Z30.430 [id number] She has been counseled on all of [...] least 2 hours. She verbalized understand ing. [id number] JUDY WONG, ARTIS [place] [address] [address] 10/19/2024 14:20:13 10/19/2024 14:46:40 Intrauterine contraceptive device in situ 580640134 Z30.431 [id number] - Kyleena IUD placed 09/25/24, due for removal 09/25/29- Discussed that if pain persists or worsens, or if bleeding becomes heavy/both ersome, pelvic ultrasound is recommende d to evaluate IUD placement. Patient verbalized understand ing. Health Concerns Section Related Observation LastModified by Organization Detai ls LastModified Time None Recorded Concern Status LastModified by Organization Details LastModified Time None Recorded Advance Directives Directive None Recorded Payers Insurance Date Sequence Insurance Name Policy Number Policy Rogers Covered Member ID Rogers Member ID Guarantor Name 10/16/2024 1 [facility] ([facility]) [id number] Erlin Aponte [id number] Jd Aponte Notes Date Note Type Note Provider Name and Address Organization Details Recorded Time 06/13/2024 text/html 18 y/o female presents to discuss alternative control options.Patient started using Twirla BC patches three months ago and reports having mood swings and feeling very sad/depressed. Patient stopped the patches after 6 weeks. Patient states that she is not sexually active and she desires BC to help with dysmenorrhea. JUDY WONG NP [address], [place], [address], [facility] 06/13/2024 13:40:09 08/09/2024 text/html 18 y/o female presents to discuss treatment options for heavy, painful periods.Patient states that her cycles are q 28 days, but the first two days she has severe cramping and Advil does not relieve the pain. Patient states that she changes a tampon or pad every 2 hours. Patient reports that she tried OCPs and patch in the past, but she experienced mood changes and depression when taking. JUDY WONG NP [address], [place], [address], [facility] 08/09/2024 12:04:31 09/14/2024 text/html 18 y/o female presents to discuss heavy, painful periods.Patient states that her cycles are q29 days, last 6 days, heavy flow.Patient reports that she tried OCPs and patch in the past, but she experienced mood changes and depression when taking.Patient states that NSAIDs, tylenol, and heating pad does not help the pain.Denies pain outside of her menses.Patient concerned that she has endometriosis as her mother and two cousins have endometriosis.Neg urinary sx'sNeg GI sx'sNeg N/V/F/C/DNeg Vag d/c, odor, irritation, itching JUDY WONG NP [address], [place], [address], [facility] 09/14/2024 17:33:47 09/25/2024 text/html Patient presents for Kyleena IUD insertion.Risks/garima efits/AEs reviewed.Informed consent obtained. Areli branham, [facility] 09/25/2024 15:31:29 10/19/2024 text/html 18 y/o female presents for IUD check.Patient had Kyleena IUD placed 09/25/24.Patient reports that her pain frequency has improved, but every 3-4 days she will have pelvic cramping for about an hour. Patient states that she has light, brown bleeding intermittently.Over all, she is happy with the IUD. JUDY WONG NP [address], [place], [address], [facility] 10/19/2024 14:45:11 OBGyn Episode No OBEpisode recorded.
--- OUTSIDE RECORDS SUMMARY | 2024-12-05 16:38 | XMS_ITS | Clinical Summary ---
Author Organization [facility] Address [address] [place] [address] Care Team Providers Care Utility Sales And Service Manager Name Role Phone Zachary Purcell MD Primary Care Provider [phone] Source Comments [facility],non-owned Affiliates and Associated Physician Practices is amultiple site organization consisting of ambulatory clinics and hospital sitesin [place], [place], [place] and [place]. This disclosure is being madepursuant to the Care Everywhere program and may not contain all information available regarding this patient. Last updated 17.[facility] Allergies No known active allergies Medications * [...] on file Legal Sex Female 5:32 AM BACKER UP Gender Identity Not on file Sexual Orientation Not on file Last Filed Vital Signs Vital Sign Reading Time Taken Comments Blood Pressure 100/70 09/06/2012 3:21 PM CDT Pulse 84 09/06/2012 3:21 PM CDT Temperature 36.8 C (98.3 F) 09/06/2012 3:21 PM CDT Respiratory Rate 24 01/18/2011 6:18 PM BACKER UP Oxygen Saturation - - Inhaled Oxygen Concentration - - Weight 25.4 kg (56 lb) 09/06/2012 3:21 PM CDT Height 125.7 cm (4' 1.5) 09/06/2012 3:21 PM CDT Body Mass Index 16.07 09/06/2012 3:21 PM CDT Plan of Treatment Health Maintenance Due Date Last Done Comments HIV SCREENING 11/05/2019 HPV VACCINE (1 - 3-dose series) 11/05/2019 CHLAMYDIA/GONORRHEA SCREENING 2020 MENINGOCOCCAL (Group B) VACC INE SHARED DECISION-MAKING (1 of 2 - Standard) 2020 HEPATITIS C SCREENING 10/31/2022 DTAP/TDAP/TD VACCINES (1 - Tdap) 11/05/2023 HEPATITIS B VACCINE (1 of 3 - 19+ 3-dose series) 11/05/2023 DEPRESSION SCREENING 03/01/2024 COVID-19 VACCINE (1 - 2023-2 5 season) 2024 INFLUENZA VACCINE (#1) 2024 ZOSTER VACCINE (1 of 2) 2054 HIB VACCINE Aged Out No longer eligi ble based on patient's age to complete this topic MENINGOCOCCAL GROUPS A/C/Y/W VACCINE Aged Out No longer eligible b ased on patient's age to complete this topic PNEUMOCOCCAL VACCINE Aged Out No long er eligible based on patient's age to complete this topic Insurance [facility] SELF PAY NO INSURANCE Member Subscriber Plan / Payer (Ef fective for All Dates) Name:[place]onna [place] Member ID:Not on file Relation to Subscriber:Not on file Name:SHONNA [place] Subscriber ID:Not on file (Home) Address: [address] [place] [address] Payer ID:Not on file Group ID:Not on file Type:Self Pay Address: [place], [place] ANTHEM ANTHEM Care Teams Utility Sales And Service Manager Relationship Specialty Start Date End Date Zachary Purcell MD [address] [place] [address] PCP - General Pediatrics 09/25/22
--- OUTSIDE RECORDS SUMMARY | 2024-12-05 16:38 | XMS_ITS | Clinical Summary ---
Author Organization [facility] Address [address] [place] [address] Care Team Providers Care Financial Professional Name Role Phone Unavailable Primary Care Provider [...]
[2024-12-05 18:43] LABS: Hematocrit 38.2 % (37.0-47.0); Hemoglobin 12.4 g/dL (12.0-15.0); Immature Granulocyte Percent A 0.3 % (0-0.5); Lymphocytes Absolute Auto 2.09 K/mm3 (0.9-3.2); Mean Corpuscular HGB Conc 32.5 g/dl (32-36); Mean Corpuscular Hemoglobin 29.3 pg (26-34); Mean Corpuscular Volume 90.3 fl (80-100); Nucleated Red Blood Cells Absolute Auto 0.000 K/mm3 (0.0-0.012); Nucleated Red Blood Cells Perc 0.0 % (0.0-0.2); Platelet Count Result 379 k/mm3 (150-375); Red Blood Count 4.23 M/mm3 (4.2-5.4); White Blood Count 13.6 K/mm3 (4.5-10.0)
[2024-12-05 19:08] LABS: Alanine Aminotransferase 17 U/L (6-35); Albumin Level 4.5 g/dL (3.5-5.1); Alkaline Phosphatase 70 U/L (38-126); Anion Gap 7 mmol/L (4-12); Aspartate Amino Transferase 58 U/L (14-36); Bilirubin,Total 0.2 mg/dL (0.2-1.3); Blood Urea Nitrogen 16 mg/dL (7-17); Calcium 9.8 mg/dL (8.4-10.2); Carbon Dioxide 28 mmol/L (22-30); Chloride 103 mmol/L (98-107); Estimated Glomerular Filt Rate > 60; Glucose 76 mg/dL (65-110); Potassium 4.4 mmol/L (3.4-5.0); Sodium 138 mmol/L (137-145); Total Protein 7.4 g/dL (6.3-8.2)
[2024-12-05 19:49] LABS: Hemoglobin A1C 5.0 % (<5.7)
[2024-12-05 20:00] LABS: Thyroid Stimulating Hormone Reflex 1.030 uIU/mL (0.465-4.68)
[2024-12-05 20:01] LABS: Vitamin B12 508.0 pg/mL (239-931)
== END 2024-12-05 16:02 | disposition home or self-care (01) ==
LOC: ANHGOSHLAB 16:02
PROVIDERS: PCP Family Medicine; Visit Provider Family Medicine
DX: Z13.1 Encounter for screening for diabetes mellitus (principal); R53.83 Other fatigue
CPT/HCPCS: 36415; 80053; 82306; 82607; 83036; 84443; 85025